=== PATIENT | female | born 1970 | race Caucasian/White ===

== ENCOUNTER 2017-12-27 03:01 | Emergency (ER) | payer BC, OTHER ==
--- NOTE | 2017-12-27 04:23 | PDOC ---
History of Present Illness - General Stated Complaint: HIGH BP Time Seen by Provider: 12/27/17 04:13 History Source: Patient Exam Limitations: No Limitations - History of Present Illness Initial Comments: This is a 47 YOF with h/o asthma (on symbicort), bipolar disorder (on lithium, geodon, ziprazidone, and benztropine), and sciatica who presents c/o high blood pressure (180s systolic measured at home) and bitemporal headache for about the past 24 hours. She explains that for the past two weeks she has had mild cough, SOB, and wheezing. Her headache was present when she awakened from sleep yesterday morning (12/26) and was always present throughout the day, up to 04/20. She has had headaches like this one before. She was seen at Urgent Care yesterday after having presented for SOB, cough, and sciatica exacerbation and was clinically diagnosed with bronchitis (states no x-ray), and given prescriptions for two antibiotics and prednisone. She has had bad reactions to prednisone in the past and thus she took only half the prescribed dose this evening after 4 pm. She shortly thereafter developed shakiness/tremors and generalized malaise. She additionally took her normal antipsychotic medication regimen about 4 hours late this evening, which she rarely ever does. 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 Past History - Past Medical History Allergies/Adverse Reactions: Allergies Allergy/AdvReac Type Severity Reaction Status Date / Time aspirin Allergy Verified 12/27/17 04:48 Penicillins Allergy Verified 12/27/17 04:48 Home Medications: Ambulatory Orders Levofloxacin 750 mg PO DAILY #2 tablet 12/27/17 Review of Systems - Review of Systems Able to Perform ROS?: Yes Constitutional: Yes: Malaise. No: Chills, Fever, Unexplained wgt Loss HEENTM: No: Nose Congestion, Throat Pain Respiratory: Yes: Cough, Shortness of Breath Cardiac (ROS): No: Chest Pain, Palpitations ABD/GI: No: Constipated, Diarrhea, Nausea, Vomiting : No: Burning, Dysuria Musculoskeletal: Yes: Back Pain. No: Neck Pain Integumentary: No: Bruising, Rash Neurological: Yes: Headache, Tremors. No: Numbness, Tingling, Weakness, Dizziness Endocrine: No: Unexplained Weight Gain, Unexplained Weight Loss *Physical Exam - Physical Exam General Appearance: Yes: Nourished, Appropriately Dressed, Obese, Other ( appears slightly anxious but appropriately, answers questions appropriately, nontoxic and well-appearing). No: Apparent Distress HEENT: positive: EOMI, SOHAM, Normal Voice, Hearing Grossly Normal. negative: Scleral Icterus (R), Scleral Icterus (L), Muffled/Hoarse voice, Pharyngeal Erythema, Nasal Congestion Neck: positive: Trachea midline, Supple. negative: Tender, Rigid, Lymphadenopathy (R), Lymphadenopathy (L) Respiratory/Chest: positive: Wheezing. negative: Respiratory Distress, Labored Respiration, Rapid RR, Decreased Breath Sounds, Crackles, Rhonchi, Stridor Cardiovascular: positive: Regular Rhythm, Regular Rate. negative: Edema, Murmur Gastrointestinal/Abdominal: positive: Normal Bowel Sounds, Soft. negative: Tender, Organomegaly, Pulsatile Mass, Guarding Musculoskeletal: positive: Normal Inspection. negative: Decreased Range of Motion, Vertebral Tenderness Extremity: positive: Normal Capillary Refill, Normal Inspection, Normal Range of Motion. negative: Tender, Cyanosis Integumentary: positive: Normal Color, Dry, Warm. negative: Erythema, Rash, Bruising Neurologic: positive: customer service sales consultant II-XII NML intact (grossly), Fully Oriented, Alert, Normal Mood/Affect, Normal Response, Motor Strength 5/5, Other (normal gait). negative: EOM Palsy, Facial Droop, Confused, Disoriented, Depressed Affect ED Treatment Course - LABORATORY CBC & Chemistry Diagram: 12/27/17 04:29 12/27/17 04:29 Medical Decision Making - Medical Decision Making 47 YOF with h/o asthma (on symbicort), bipolar disorder (on lithium, geodon, ziprazidone, and benztropine), and sciatica. Reports distant h/o HTN and was previously medicated but states she changed her diet and has not needed meds lately. Presents c/o high BP, headache, SOB, cough. On exam VS wnl, she appears slightly anxious, bilateral expiratory wheezes, no cough, normal neuro exam. She does not appear to be in any distress though she does state her headache persists. Ordered is CBCD CMP Mg Cardiac panel EKG CXR UA Cx DuoNeb x2. 12/27/17 05:32 UA with many bacteria; Levaquin 750 ordered. E-Rx sent to her pharmacy for Levaquin. Also ordered is head CT for persistent headache. Tylenol ordered for headache. 12/27/17 06:49 Patient's BONNER has essentially resolved. Her repeat neuro exam is benign. We have shared decision making and decide not to do head CT. Repeat vitals are not concerning. She is counseled to speak with her PCP about long-term HTN medication. She is also counseled at length about return precautions. She will follow up early this week with PCP. *DC/Admit/Observation/Transfer Diagnosis at time of Disposition: Dizziness and giddiness Headache Qualifiers: Headache type: unspecified Headache chronicity pattern: acute headache Intractability: not intractable Qualified Code(s): R51 - Headache UTI (urinary tract infection) Qualifiers: Urinary tract infection type: site unspecified Hematuria presence: without hematuria Qualified Code(s): N39.0 - Urinary tract infection, site not specified - Discharge Dispostion Disposition: HOME Condition at time of disposition: Stable Admit: No - Prescriptions Prescriptions: Levofloxacin 750 mg PO DAILY #2 tablet - Referrals - Patient Instructions Additional Instructions: You were seen in the ER for high blood pressure, headache, and shakiness. We did lab tests and found a urinary tract infection, so we gave you a dose of an antibiotic called Levaquin and sent a prescription to your for the rest of this short course of antibiotics. We also gave you a dose of Tylenol for your headache. We got a chest x-ray which did not look at all concerning. We considered getting a head CT, but your pain improved enough while you were in the department that we do not believe you need a head CT. Please follow up with your regular doctor on Thursday. Continue taking the medications you got at Urgent Care (it is okay to be on both of these antibiotics at the same time). Please return to the ER for any new or worsening symptoms like worsening headache, vision changes, losing consciousness, new numbness/tingling/weakness, or any other symptoms. - Post Discharge Activity
[2017-12-27 04:35] LABS: BASO % 0.8 % (0-2.0); HEMATOCRIT 38.1 % (32.4-45.2); HEMOGLOBIN 12.9 GM/dL (10.7-15.3); LYMPH % 25.8 % (8-40); MCHC 33.8 g/dl (32.0-36.0); MEAN CELL VOLUME 85.8 fl (80-96); MEAN PLT VOLUME 8.1 fl (7.5-11.1); MONO % 6.9 % (3.8-10.2); NEUT % 65.5 % (42.8-82.8); PLATELET COUNT 338 K/MM3 (134-434); RBC 4.44 M/mm3 (3.60-5.2); RDW 15.2 % (11.6-15.6); WHITE BLOOD COUNT 9.9 K/mm3 (4.0-10.0)
[2017-12-27 04:39] LABS: URINE APPEARANCE CLEAR; URINE BILIRUBIN NEGATIVE (NEGATIVE); URINE COLOR STRAW; URINE GLUCOSE (UA) NEGATIVE (NEGATIVE); URINE KETONE NEGATIVE (NEGATIVE); URINE LEUK ESTERASE NEGATIVE (NEGATIVE); URINE NITRITE NEGATIVE (NEGATIVE); URINE PROTEIN NEGATIVE (NEGATIVE); URINE UROBILINOGEN NEGATIVE mg/dL (0.2-1.0)
[2017-12-27 04:42] LABS: EPI CELLS RARE /HPF (FEW); URINE BACTERIA MANY /hpf (NONE SEEN)
--- NOTE | 2017-12-27 04:42 | PDOC ---
Attending Attestation - Resident Resident Name: AlissonLisa - ED Attending Attestation I have performed the following: I have examined & evaluated the patient, The case was reviewed & discussed with the resident, I agree w/resident's findings & plan - HPI HPI: 12/27/17 05:27 Pt comes with headache. She had high BP at home. She has a hx of HTN, but with improved diet she managed to get off HTN meds. - Physicial Exam PE: 12/27/17 05:29 Agree with resident exam - Medical Decision Making 12/27/17 05:29 Pt will have labs, CT head and UA sent to evaluate her condition. Labs returning normal. CT head pending. 12/27/17 19:[address] head was canceled as she feels vastly imrpoved with initial treatment in the ER and labs are returning to normal, and as a result she is refusing the CT and requesting that we send her home. Pt is stable for discharge at this time. She has a normal neuro exam. <Kiana Ridley - Last Filed: 12/27/17 19:32> Heart Score/ECG Review - ECG Intrepretation Comment:: 12/27/17 04:42 Completed @4:36:05 Normal sinus rhythm Normal ECG Vent. rate 76 bpm ME interval 148ms QRS duration 108 ms <Tremayne Guidry - Last Filed: 12/27/17 04:42>
[2017-12-27 04:47] VITALS: BP 144/94; PULSE 82; TEMP 98.2
[2017-12-27 05:00] LABS: ALBUMIN 3.8 g/dl (3.4-5.0); ANION GAP 12 (8-16); BILIRUBIN,TOTAL 0.2 mg/dL (0.2-1.0); BLOOD UREA NITROGEN 8 mg/dL (7-18); CALCIUM 8.9 mg/dL (8.5-10.1); CHLORIDE 108 mmol/L (98-107); CO2 21 mmol/L (21-32); CREATININE 0.6 mg/dL (0.55-1.02); GLUCOSE,RANDOM 93 mg/dL (74-106); MAGNESIUM 2.3 mg/dL (1.8-2.4); SGOT/AST 20 U/L (15-37); SGPT/ALT 20 U/L (12-78); SODIUM 141 mmol/L (136-145); TOT PROT 7.3 g/dl (6.4-8.2)
[2017-12-27 05:03] LABS: ALK PHOS 113 U/L (45-117)
[2017-12-27] MEDS ORDERED: ALBUTEROL SO4 2.5/IPRATROPIUM 0.5 INH SOL 3 ML VIAL.NEB. NEB ONE (05:18)
[2017-12-27] MEDS ORDERED: ACETAMINOPHEN 500 MG TABLET (FP) PO ONE (06:25)
[2017-12-27] MEDS ORDERED: ACETAMINOPHEN 325 MG TABLET (FP) ONE (06:35)
--- NOTE | 2017-12-27 23:57 | EKG ---
Test Reason : Blood Pressure : / mmHG Vent. Rate : 076 BPM Atrial Rate : 076 BPM P-R Int : 148 ms QRS Dur : 108 ms QT Int : 422 ms P-R-T Axes : 042 021 030 degrees QTc Int : 474 ms POOR DATA QUALITY, INTERPRETATION MAY BE ADVERSELY AFFECTED NORMAL SINUS RHYTHM NORMAL ECG NO PREVIOUS ECGS AVAILABLE Confirmed by CARLOS CLARK MD ([id number]) on 12/27/2017 11:56:43 PM Referred By: Confirmed By:CARLOS CLARK MD
== END 2017-12-27 07:06 | disposition home or self-care (01) ==
LOC: JER 03:01
PROC: 3E0F7GC Introduction of Other Therapeutic Substance into Respiratory Tract, Via Natural or Artificial Opening (ICD-10-PCS; principal; 2017-12-27)
DX: N39.0 Urinary tract infection, site not specified (principal); R51 Headache
CPT/HCPCS: 36415; 71045-TC-FY; 80053; 81003; 81015; 82550; 83735; 84484; 85025; 87086; 93005; 93010; 94640; 99281-25; 99282-25; J7620

== ENCOUNTER 2019-04-29 14:34 | Observation (INO) | payer BC, OTHER ==
--- NOTE | 2019-04-29 14:41 | PDOC ---
Rapid Medical Evaluation Time Seen by Provider: 04/29/19 14:39 Medical Evaluation: Allergies Allergy/AdvReac Type Severity Reaction Status Date / Time aspirin Allergy Verified 12/27/17 22:59 Penicillins Allergy Verified 12/27/17 22:59 04/29/19 14:40 I have performed a brief in-person evaluation of this patient. The patient presents with a chief complaint of: AMS (memory loss and hypersomnia ). H/o bipolar on meds, including lithium, HTN, asthma Pertinent physical exam findings:Stable and A&O x 3 I have ordered the following:none The patient will proceed to the ED for further evaluation. Discharge Disposition - Diagnosis Altered mental status Qualifiers: Altered mental status type: unspecified Qualified Code(s): R41.82 - Altered mental status, unspecified - Referrals - Patient Instructions - Post Discharge Activity
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
--- NOTE | 2019-04-29 18:03 | PDOC ---
*Physical Exam - Vital Signs Last Vital Signs Temp Pulse Resp BP Pulse Ox 97.9 F 64 18 118/75 96 04/29/19 14:38 04/29/19 14:38 04/29/19 14:38 04/29/19 14:38 04/29/19 14:38 Heart Score/ECG Review #1 ECG reviewed & interpreted by me at: 17:55 04/29/19 18:03 NSR 56, LVH, no std/casandra, TWI, normal axis, normal intervals, QTC 459 msec Medical Decision Making - Medical Decision Making 04/29/19 18:02 Pt seen by the Advanced Practice Provider under my direct supervision Ancillary studies reviewed I agree with plan as outlined by the Advanced Practice Provider TATI Carmona *DC/Admit/Observation/Transfer Diagnosis at time of Disposition: Altered mental status Qualifiers: Altered mental status type: unspecified Qualified Code(s): R41.82 - Altered mental status, unspecified - Referrals Referrals: Felipe Judge MD [Primary Care Provider] - - Patient Instructions - Post Discharge Activity
[2019-04-29 18:39] LABS: BASO % 0.9 % (0-2.0); EOS % 5.8 % (0-4.5); HEMATOCRIT 36.5 % (32.4-45.2); HEMOGLOBIN 12.4 GM/dL (10.7-15.3); LYMPH % 32.6 % (8-40); MCH 29.7 pg (25.7-33.7); MCHC 33.9 g/dl (32.0-36.0); MEAN CELL VOLUME 87.7 fl (80-96); MEAN PLT VOLUME 8.3 fl (7.5-11.1); MONO % 6.3 % (3.8-10.2); NEUT % 54.4 % (42.8-82.8); PLATELET COUNT 316 K/MM3 (134-434); RBC 4.17 M/mm3 (3.60-5.2); WHITE BLOOD COUNT 9.1 K/mm3 (4.0-10.0)
[2019-04-29 19:01] LABS: ALBUMIN 3.7 g/dl (3.4-5.0); BILIRUBIN,TOTAL 0.2 mg/dL (0.2-1); BLOOD UREA NITROGEN 10.3 mg/dL (7-18); CALCIUM 8.9 mg/dL (8.5-10.1); CREATININE 0.9 mg/dL (0.55-1.3)
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
[2019-04-30] MEDS ORDERED: BENZTROPINE MESYLATE 2 MG TABLET PO ONE (01:49)
[2019-04-30 04:48] VITALS: BMI 33.3
[2019-04-30 08:15] LABS: COCAINE, UR NEGATIVE ng/ml (CUTOFF=300); METHADONE, UR NEGATIVE ng/ml (CUTOFF=300); OPIATES, URI NEGATIVE ng/ml (CUTOFF=300); PHENCYCLIDINE,URINE NEGATIVE ng/ml (CUTOFF=25); URINE AMPHETAMINES NEGATIVE ng/ml (CUTOFF=500); URINE BARBITURATES NEGATIVE ng/ml (CUTOFF=200); URINE BENZODIAZEPINES NEGATIVE ng/ml (CUTOFF=200)
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
[2019-04-30 08:35] LABS: HEMATOCRIT 36.2 % (32.4-45.2); HEMOGLOBIN 12.2 GM/dL (10.7-15.3); MCH 29.5 pg (25.7-33.7); MCHC 33.7 g/dl (32.0-36.0); MEAN CELL VOLUME 87.5 fl (80-96); MEAN PLT VOLUME 8.4 fl (7.5-11.1); PLATELET COUNT 317 K/MM3 (134-434); RBC 4.14 M/mm3 (3.60-5.2); RDW 14.1 % (11.6-15.6); WHITE BLOOD COUNT 9.2 K/mm3 (4.0-10.0)
[2019-04-30 08:52] LABS: ALBUMIN 3.6 g/dl (3.4-5.0); BILIRUBIN,TOTAL 0.4 mg/dL (0.2-1); BLOOD UREA NITROGEN 10.2 mg/dL (7-18); CALCIUM 8.7 mg/dL (8.5-10.1); CREATININE 0.8 mg/dL (0.55-1.3); MAGNESIUM 2.4 mg/dL (1.8-2.4); TOT PROT 6.9 g/dl (6.4-8.2)
[2019-04-30] MEDS ORDERED: PT OWN MED DRAWER 7, Y5N ONE ×2 (09:16→21:42)
[2019-04-30 09:34] LABS: EPI CELLS 7.8 /HPF (0-5/HPF); HYALINE CASTS 0 /lpf (0-8); URINE APPEARANCE CLEAR; URINE BILIRUBIN NEGATIVE (NEGATIVE); URINE COLOR YELLOW; URINE GLUCOSE (UA) NEGATIVE (NEGATIVE); URINE KETONE NEGATIVE (NEGATIVE); URINE LEUK ESTERASE 3+ (NEGATIVE); URINE NITRITE NEGATIVE (NEGATIVE); URINE PROTEIN NEGATIVE (NEGATIVE); URINE RBC 1 /hpf (0-4); URINE UROBILINOGEN 0.2 mg/dL (0.2-1.0); URINE WBC 18 /hpf (0-5)
[2019-04-30] MEDS: ZIPRASIDONE 40 MG CAPSULE (FP) PO SCH ×2 (09:43→21:47)
[2019-04-30] MEDS: LITHIUM CARBONATE 150 MG CAPSULE PO SCH ×2 (09:43→21:47)
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
[2019-04-30] MEDS ORDERED: CITALOPRAM HYDROBROMIDE 20 MG TABLET (FP) PO SCH (22:00)
[2019-04-30] MEDS ORDERED: BENZTROPINE MESYLATE 2 MG TABLET PO SCH (22:00)
--- NOTE | 2019-05-01 00:08 | EKG ---
Test Reason : Blood Pressure : / mmHG Vent. Rate : 056 BPM Atrial Rate : 056 BPM P-R Int : 168 ms QRS Dur : 094 ms QT Int : 476 ms P-R-T Axes : 023 007 020 degrees QTc Int : 459 ms SINUS BRADYCARDIA MINIMAL VOLTAGE CRITERIA FOR LVH, MAY BE NORMAL VARIANT BORDERLINE ECG WHEN COMPARED WITH ECG OF 27-DEC-2017 04:36, NO SIGNIFICANT CHANGE WAS FOUND Confirmed by AMBER MENENDEZ, CARLOS ([id number]) on 05/01/2019 12:07:53 AM Referred By: Confirmed By:CARLOS CLARK MD
--- NOTE | 2019-05-01 09:05 | PN ---
Progress Note (short form) - Note Progress Note: is currently hospitalized at [facility] since April. Not expected to return to work until at least April. Sincerely, Sandhya Mcneill MD
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
[2019-05-01] MEDS ORDERED: PT OWN MED DRAWER 7, Y5N ONE ×2 (09:37→11:30)
[2019-05-01] MEDS: LITHIUM CARBONATE 150 MG CAPSULE PO SCH (09:41)
[2019-05-01] MEDS: ZIPRASIDONE 40 MG CAPSULE (FP) PO SCH (09:42)
[2019-05-01 12:30] VITALS: BP 148/90
--- NOTE | 2019-05-01 13:31 | CON.PSY ---
Psychiatry Consult Chief Complaint: 49 mica old female with a long history of BiPolar Diusorder being treated by for many years. Cane to [facility] reporting that she has been confused and cant remenber anything. She However has been visitiongt with people bthat she has not seen [facility] and able to rememberr them and engage in conversation. seems very coherent. Symptoms: reports: Memory Impairment - Previous Psychiatric Treatment Outpatient: Less than 6 mos ago Inpatient: One prior admission - Previous Substance Abuse Treatment Outpatient: None Inpatient: None - Reason for Previous Treatment Reason for Previous Treatment: Biploar Illness - Current Medications Current Medications: Active Medications [place] Carbonate (Eskalith -) 450 mg PO BID TIAOG Last Admin: 05/01/19 09:41 Dose: 450 mg - Allergies Allergies: Allergies Allergy/AdvReac Type Severity Reaction Status Date / Time aspirin Allergy Verified 12/27/17 22:59 Penicillins Allergy Verified 12/27/17 22:59 - Current Living Status Usual Living Arrangement: Alone - Current Mental Status Evaluation Appearance: Well Groomed Attitude: Cooperative - Affect Affect: Full Range Appropriateness: Appropriate to Content - Mood Mood: Euthymic - Speech/Language Expressive: Coherent - Psychomotor Activity Psychomotor Activity: Normal - Thought Process Thought Process: Intact - Thought Content Hallucinations: Absent Delusions: Absent - Self Perception Self Perception: No Impairment - Cognition Attention: Alert Orientation: Time Memory, Immediate Recall: Intact Memory, Short Term: 3/3 Memory, Remote with Promptin/3 - Concentration Serial Sevens Intact: No Simple Calculations Intact: Yes - Abstraction Proverb Interpretation: Intact Judgement: Intact - Insight Insight: Intact - Impulse Control Impulse Control: Good Control - Suicidal Ideation Suicidal Ideation: No - Homicidal Ideation Homicidal Ideation: No Assessment/Plan 1) will d/c Celexa. cogentin and reduce Geodo dose. 2) No major cognitive defecits seen by me but would recemmend a Neuro Consult prior to Discharge. 3) will follow with Dr. Guillen. 4) Serum [place] levels.
[2019-05-01 14:25] VITALS: PULSE 77; TEMP 97.5
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
[2019-05-01] MEDS ORDERED: ZIPRASIDONE 20 MG CAPSULE PO SCH (22:00)
== END 2019-05-01 18:08 | disposition home or self-care (01) ==
LOC: JER 14:34 → JERBED 22:52 → J6S 04-30 03:26
PROVIDERS: ADMIT Internal Medicine; ATTEND Internal Medicine
DX: R41.82 Altered mental status, unspecified (principal); I10 Essential (primary) hypertension; F31.9 Bipolar disorder, unspecified; J45.909 Unspecified asthma, uncomplicated
CPT/HCPCS: 36415; 70450-TC; 80053; 80178; 80307; 81003; 82140; 82607; 82746; 83735; 84443; 84703; 85025; 85027; 93005; 93010; 99281-25; G0378

== ENCOUNTER 2020-04-24 06:47 | Day surgery (SDC) | payer BC ==
[2020-04-23 12:33] VITALS: BMI 37.0
[2020-04-24] MEDS ORDERED: oxyCODONE HCL 5 MG TABLET PO PRN ×2 (07:40→13:04)
[2020-04-24] MEDS ORDERED: ONDANSETRON 4 MG/2 ML VIAL IVPUSH PRN ×2 (07:40→13:04)
[2020-04-24] MEDS ORDERED: LACTATED RINGERS SOLUTION 1,000 ML IV SCH (07:45)
[2020-04-24] MEDS ORDERED: SUCCINYLCHOLINE CHLORIDE 200 MG/10 ML SYRINGE ONE (07:50)
[2020-04-24] MEDS ORDERED: PROPOFOL 20 ML ONE ×2 (07:50)
[2020-04-24] MEDS ORDERED: MIDAZOLAM HCL 2 MG/2 ML SINGLE DOSE VIAL ONE (07:50)
[2020-04-24] MEDS ORDERED: EPHEDRINE SULFATE/0.9% NACL/PF 50 MG/10 ML SYRINGE NR ONE (07:50)
[2020-04-24] MEDS ORDERED: LIDOCAINE HCL/PF 2% SDV 5ML VIAL ONE (07:50)
[2020-04-24] MEDS ORDERED: DEXAMETHASONE SOD PHOSPHATE 4 MG/1 ML VIAL ONE (07:50)
--- NOTE | 2020-04-24 09:00 | HP ---
History & Physical Update - Physical Physical: No Change - Assessment Assessment: No Change - Plan Plan: No Change (H&P reviwed , no changes for hysteroscopy D&C ,polypectomy)
[2020-04-24] MEDS ORDERED: ONDANSETRON 4 MG/2 ML VIAL ONE (10:15)
--- NOTE | 2020-04-24 13:08 | OP ---
Operative Note - Note: Operative Date: 04/24/20 Pre-Operative Diagnosis: menorrhagia, EM polyp, submucos myoma Operation: hysteroscopy, resection of submucos myoma, EM polypectomy, D&C Findings: ant2 cm submucos myoma fundal area, EM polyp, irregular EM Post-Operative Diagnosis: Same as Pre-op Surgeon: Patricio Chris Anesthesia: General Specimens Removed: submucos myoma, EM polyp, EMC Estimated Blood Loss (mls): 50 Instrument used (Debridements only): symphion
[2020-04-24 13:15] VITALS: BP 134/79; PULSE 62; TEMP 98
[2020-04-24] MEDS ORDERED: ELECTROLYTE-148 SOLN 1,000 ML IV SCH (13:15)
--- NOTE | 2020-04-24 20:07 | OP ---
DATE OF OPERATION: 04/24/2020 PREOPERATIVE DIAGNOSIS: Menorrhagia, submucosal myoma, endometrial polyp. POSTOPERATIVE DIAGNOSIS: Menorrhagia, submucosal myoma, endometrial polyp. PROCEDURE: Hysteroscopy dilation and curettage, resection of submucosal myoma, and polypectomy. SURGEON: Patricio Chris MD. ANESTHESIOLOGIST: Jamar Marquez MD. ESTIMATED BLOOD LOSS: 50 mL. OPERATION: Patient was taken to operating room, had adequate general anesthesia. Abdomen and perineum were prepped and draped. Vagina was prepped with Betadine, and then examination under anesthesia revealed external genitalia to be normal. Vagina was normal. Cervix was clean, no gross lesion. Uterus was prominent. Adnexa, no masses were palpable. Then, with a weighted speculum in the vagina, anterior lip of the cervix was grasped with a single-toothed tenaculum. Uterine cavity was sounded to 10 cm. Then cervix with slightly dilated and with Hegar dilator. Then, Symphion hysteroscope was introduced to the uterine cavity easily, and then visualization of the cavity shows the endocervical area to be clean. Uterus cavity was enlarged, and there was 2-cm submucosal myoma on the anterior fundal area, and there were 2 small polyps on the lateral left wall. Both corneal regions were identified, and tubal ostium was visualized. Then with a Symphion resectoscope, a submucous myoma first was resected and suctioned, and then the polyps were also resected with the Symphion resectoscope. Then the scope was withdrawn, and then uterine cavity was curetted. Patient tolerated procedure well, left the OR in good condition. PATRICIO CHRIS M.D. [id number]
--- NOTE | 2020-04-25 17:19 | PATH ---
Surgical Pathology Report Patient Name: EVAN CADENA [facility]. Rec. #: [id number] /Age/Gender: 1970 (Age: 50) / F Account: [id number] Location: [facility] SURGICAL Taken: 04/24/2020 Received: 04/24/2020 Reported: 04/25/2020 Physicians: Patricio Chris M.D. Specimen(s) Received A: ENDOMETRIAL POLYP AND UTERE MYOMA B: ENDOMETRIAL CURETTINGS Clinical History Endometrial polyps Final Diagnosis A. ENDOMETRIAL POLYP AND UTERINE MYOMA, BIOPSY: FRAGMENTS OF ENDOMETRIAL POLYP. ONE PORTION OF SMOOTH MUSCLE BUNDLE, CONSISTENT WITH SUBMUCOSAL LEIOMYOMA IN THE PROPER CLINICAL SETTING. SEPARATE PROLIFERATIVE ENDOMETRIUM WITH FOCAL PAPILLARY SYNCYTIAL CHANGE. SEPARATE ENDOCERVICAL TISSUE WITH SQUAMOUS METAPLASIA. B. ENDOMETRIAL CURETTINGS: FRAGMENTS OF ENDOMETRIAL POLYP. SMOOTH MUSCLE BUNDLES, CONSISTENT WITH SUBMUCOSAL LEIOMYOMA IN THE PROPER CLINICAL SETTING. SEPARATE PROLIFERATIVE ENDOMETRIUM WITH FOCAL PAPILLARY SYNCYTIAL CHANGE. Electronically Signed Eileen Parnell M.D. Gross Description A. Received in formalin labeled "endometrial polyp and uterine myoma," is a 3.5 x 2.0 x 0.3 cm aggregate of benjamin-brown soft tissue fragments. The formalin is filtered and the specimen is entirely submitted in 2 cassettes. B. Received in formalin labeled "endometrial curetting," is a 1.6 x 1.4 x 0.3 cm aggregate of benjamin soft tissue fragments. The formalin is filtered and the specimen is entirely submitted in one cassette. /04/24/2020 saudi/04/24/2020
== END 2020-04-24 12:45 | disposition home or self-care (01) ==
LOC: JASU-SURG 06:47
PROVIDERS: ATTEND Obstetrics & Gynecology
PROC: 0UDB7ZX Extraction of Endometrium, Via Natural or Artificial Opening, Diagnostic (ICD-10-PCS; 2020-04-24)
PROC: 0UJD8ZZ Inspection of Uterus and Cervix, Via Natural or Artificial Opening Endoscopic (ICD-10-PCS; 2020-04-24)
PROC: 0UB98ZZ Excision of Uterus, Via Natural or Artificial Opening Endoscopic (ICD-10-PCS; principal; 2020-04-24 09:00)
PROC: 0UB97ZX Excision of Uterus, Via Natural or Artificial Opening, Diagnostic (ICD-10-PCS; 2020-04-24 09:00)
DX: N92.0 Excessive and frequent menstruation with regular cycle (principal); D25.0 Submucous leiomyoma of uterus; N84.0 Polyp of corpus uteri
CPT/HCPCS: 84703; 88305-TC; 94760

== ENCOUNTER 2020-06-18 14:12 | Emergency (ER) | payer BC ==
--- NOTE | 2020-06-18 14:19 | PDOC ---
Rapid Medical Evaluation Time Seen by Provider: 06/18/20 14:15 Medical Evaluation: Allergies Allergy/AdvReac Type Severity Reaction Status Date / Time aspirin Allergy Verified 04/24/20 07:31 Penicillins Allergy Verified 04/24/20 07:31 06/18/20 14:16 I have performed a brief in-person evaluation of this patient. CC: abdominal pain, headache, dizziness, "my legs feel like jelly." Symptoms started after abrupt discontinuation of lithium under recommendation of Dr. Enriqueta Fitch. PE: No focal findings Orders: labs, urine Patient will proceed to ED for further evaluation. Discharge Disposition - Diagnosis Headache - Referrals - Patient Instructions - Post Discharge Activity
[2020-06-18] MEDS ORDERED: SODIUM CHLORIDE 1,000 ML IV STA (14:20)
[2020-06-18 14:25] VITALS: BMI 32.5
--- NOTE | 2020-06-18 14:29 | PDOC ---
History of Present Illness - General Chief Complaint: Weakness Stated Complaint: HEADACHE/WEAKNESS Time Seen by Provider: 06/18/20 14:15 History Source: Patient Exam Limitations: No Limitations - History of Present Illness Initial Comments: 06/18/20 14:27 HPI: This is a 50 y/o female with a PMH of HTN, bipolar, and asthma presenting to the ED due to progressive weakness, abdominal pain, and nausea which she attributes to lithium withdrawal. She began having abdominal pain a few weeks ago and thought it may be due to lithium toxicity. Her psychiatrist told her to hold the lithium and go have labs drawn. Per her psychiatrist her lithium level was sub therapeutic at .3. The patient wanted to stop taking the lithium because she felt well, and the psychiatrist oked it. The patient stopped Thursday, but developed worsening abdominal pain, diarrhea, nausea, and weakness. She also admits to decreased appetite and insomnia. She reports that she hasn't slept the past two evenings. She took her normal lithium dose this morning to see if it would make her feel better. She denies chest pain, SOB. ADULT ROS Constitutional - Pt denies Fever, Chills Admits to weakness HEENT: denies vision changes, sore throat Respiratory: Denies cough, sob, hemoptysis Cardiac: denies chest pain, palpitations, light headedness Abd/GI: Admits to abdominal pain, nausea, and diarrhea. Denies vomiting : denies dysuria, frequency, discharge Musculskelatal - denies back pain, joint swelling skin - denies bruising, erythema, rash neurological: Admits to headache, Denies numbness, focal weakness, tingling, ataxia, weakness hematologic: denies anemia, easy bruising, easy bleeding PMH: HTN, bipolar, asthma PSx: Social Hx: Denied etoh, tobacco, or drug use Meds: [place], geodon, metoprolol Allergies: Aspirin, penicillin ADULT Physical ExaM GENERAL: The patient is awake, alert, and fully oriented, Nontoxic - in no acute distress. HEAD: Normocephalic, atraumatic. EYES: extraocular movements intact, conjunctiva clear. ENT: Normal voice, Moist mucous membranes. NECK: Normal range of motion, supple without lymphadenopathy, JVD, or masses. LUNGS: Breath sounds equal, clear to auscultation bilaterally. No wheezes, no crackles, no rales. HEART: Regular rate and rhythm, normal S1 and S2 without murmur, rub or gallop. ABDOMEN: Soft, nontender, normoactive bowel sounds. No guarding, no rebound. No masses. NEUROLOGICAL: No facial asymmetry, Normal speech, normal gait. PSYCH: Normal mood, normal affect. No suicidal or homicidal ideation. MDM: This is a 50 y/o female with a PMH of HTN, bipolar, and asthma presenting to the ED due to progressive weakness, abdominal pain, and nausea which she attributes to lithium withdrawal. - [place] withdrawal vs depressive episode vs hypothyroid - CBC, CMP, TSH, Cardiac panel, lithium level - Zofran for nausea, fluids, acetaminophen for headache 06/18/20 15:34 Spoke with her psychiatrist, Dr. Quezada who reports that she knew that the patient stopped the [place] on Thursday and suggested this may be lithium withdrawal. OK to d/c if no other concerns in ED and follow-up as an outpatient in the next few days. 06/18/20 15:47 -Mildly elevated liver enzymes. - AST 64 and ALT 109 -POCUS with no evidence of gallbladder pathology - Patient stable to d/c and follow-up with psychiatrist tomorrow. Past History - Medical History Allergies/Adverse Reactions: Allergies Allergy/AdvReac Type Severity Reaction Status Date / Time aspirin Allergy Verified 06/18/20 14:17 Penicillins Allergy Verified 06/18/20 14:17 Home Medications: Ambulatory Orders Escitalopram Oxalate [Lexapro -] 20 mg PO HS 04/23/20 Hydrochlorothiazide 25 mg PO DAILY 04/23/20 Lamotrigine [Lamotrigine ER] 50 mg PO BID 04/23/20 Ziprasidone [Geodon -] 80 mg PO DAILY 04/23/20 Acetaminophen [Tylenol] 650 mg PO TID PRN #30 tablet 04/24/20 Albuterol Sulfate [Albuterol Sulfate Hfa] 18 gm IH PRN PRN 04/24/20 Metoprolol Succinate [Toprol Xl] 200 mg PO DAILY 04/24/20 Anemia: No Asthma: Yes Cancer: No Cardiac Disorders: No CVA: No COPD: No CHF: No Dementia: No Diabetes: No GI Disorders: No Disorders: No HTN: Yes Hypercholesterolemia: No Liver Disease: No Psychiatric Problems: Yes (bipolar) Seizures: No Thyroid Disease: No - Reproductive History Is Patient Now?: No - Immunization History Immunization Up to Date: Yes - Psycho-Social/Smoking History Smoking History: Unknown if ever smoked Have you smoked in the past 12 months: No - Substance Abuse Hx (Audit-C & DAST Scrn) How often the patient has a drink containing alcohol: Never Score: In Men: 4 or > Positive; In Women: 3 or > Positive: 0 Screen Result (Pos requires Nsg. Audit-10AR): Negative In the last yr the pt used illegal drug/Rx for NonMed reason: No Score: Yes response is considered Positive: 0 Screen Result (Positive result requires Nsg. DAST-10): Negative *Physical Exam - Vital Signs Last Vital Signs Temp Pulse Resp BP Pulse Ox 57 L 20 157/87 99 06/18/20 14:23 06/18/20 14:23 06/18/20 14:23 06/18/20 14:23 ED Treatment Course - LABORATORY CBC & Chemistry Diagram: 06/18/20 14:45 06/18/20 14:45 Discharge - Discharge Information Problems reviewed: Yes Clinical Impression/Diagnosis: Shaking Abdominal pain Qualifiers: Abdominal location: generalized Qualified Code(s): R10.84 - Generalized abdominal pain Condition: Stable Disposition: HOME - Admission No - Follow up/Referral Referrals: Emerson Cardona MD [Primary Care Provider] - - Patient Discharge Instructions Patient Printed Discharge Instructions: DI for Abdominal Pain-Adult Additional Instructions: You came to the ER today because of abdominal pain, weakness, and not feeling well. We did labs which came back normal except for slightly elevated liver enzymes. You can follow up with you primary care provider on an outpatient basis for this. We spoke with your psychiatrist who advised that you resume your lithium as normal and follow-up with her in the next day. Take all your medications as prescribed. Please return to the emergency department immediately should you feel worse in any way or have any of the following symptoms: increasing or different abdominal pain, persistent vomiting, fevers or shaking chills. - Post Discharge Activity
[2020-06-18 15:05] LABS: BASO % 0.8 % (0-2.0); EOS % 2.8 % (0-4.5); HEMATOCRIT 36.6 % (32.4-45.2); HEMOGLOBIN 11.9 GM/dL (10.7-15.3); LYMPH % 32.2 % (8-40); MCH 28.1 pg (25.7-33.7); MCHC 32.6 g/dl (32.0-36.0); MEAN CELL VOLUME 86.2 fl (80-96); MEAN PLT VOLUME 8.7 fl (7.5-11.1); MONO % 8.6 % (3.8-10.2); NEUT % 55.6 % (42.8-82.8); PLATELET COUNT 331 K/MM3 (134-434); RBC 4.24 M/mm3 (3.60-5.2); RDW 14.7 % (11.6-15.6); WHITE BLOOD COUNT 6.9 K/mm3 (4.0-10.0)
[2020-06-18] MEDS ORDERED: ONDANSETRON 4 MG TABLET PO ONE (15:20)
[2020-06-18] MEDS ORDERED: ACETAMINOPHEN 1000 MG/100 ML VIAL (NON FORMULARY) IVPB ONE (15:21)
[2020-06-18] MEDS ORDERED: FAMOTIDINE 20 MG TABLET PO ONE (15:33)
[2020-06-18] MEDS ORDERED: MAG HYDROX/AL HYDROX/SIMETH 30 ML UNIT-DOSE CUP PO ONE (15:33)
[2020-06-18 15:34] LABS: ALBUMIN 3.7 g/dl (3.4-5.0); ALK PHOS 99 U/L (45-117); ANION GAP 8 MMOL/L (8-16); BILIRUBIN,TOTAL 0.2 mg/dL (0.2-1); BLOOD UREA NITROGEN 9.8 mg/dL (7-18); CALCIUM 9.5 mg/dL (8.5-10.1); CHLORIDE 108 mmol/L (98-107); CO2 26 mmol/L (21-32); CREATININE 0.8 mg/dL (0.55-1.3); GLUCOSE,RANDOM 96 mg/dL (74-106); POTASSIUM 3.4 mmol/L (3.5-5.1); SGOT/AST 64 U/L (15-37); SGPT/ALT 109 U/L (13-61); SODIUM 142 mmol/L (136-145); TOT PROT 7.4 g/dl (6.4-8.2)
--- NOTE | 2020-06-18 15:47 | PDOC ---
Attending Attestation - Resident Resident Name: Luis MiguelNeha - ED Attending Attestation I have performed the following: I have examined & evaluated the patient, The case was reviewed & discussed with the resident, I agree w/resident's findings & plan, Exceptions are as noted - HPI HPI: 50 yo F history HTN, bipolar disorder, asthma presents with weakness. She states she has been having abdominal pain and nausea anytime she eats for the past few weeks, and was concerned it was associated with her lithium. She has had lithium toxicity in the past, which raised her concern. She discussed with her psychiatrist, they held the lithium and she got tested. Level was subtherapeutic. She states initially she was feeling well, but then started to have trouble sleeping. Abdominal pain and nausea never improved. Today she developed tremors in her hands and became concerned, restarted lithium. - Physicial Exam PE: GENERAL: Awake, alert, and fully oriented, in no acute distress HEAD: No signs of trauma EYES: PERRLA, EOMI, sclera anicteric, conjunctiva clear ENT: Auricles normal inspection, hearing grossly normal, nares patent, oropharynx clear without exudates. Moist mucosa NECK: Normal ROM, supple, no lymphadenopathy, JVD, or masses LUNGS: Breath sounds equal, clear to auscultation bilaterally. No wheezes, and no crackles HEART: Regular rate and rhythm, normal S1 and S2, no murmurs, rubs or gallops ABDOMEN: Soft, nontender, normoactive bowel sounds. No guarding, no rebound. No masses EXTREMITIES: Normal range of motion, no edema. No clubbing or cyanosis. No cords, erythema, or tenderness NEUROLOGICAL: Cranial nerves II through XII grossly intact. Normal speech, normal gait. Motor and sensation intact SKIN: Warm, dry, normal turgor, no rashes or lesions noted. - Medical Decision Making 06/18/20 16:09 Pt is describing some manic symptoms, likely due to lithium cessation. She will resume old dosing regimen. As she is having abdominal symptoms with eating, suspect this may be gastritis/PUD. Will recommend GI f/u. Discharge - Discharge Information Problems reviewed: Yes Clinical Impression/Diagnosis: Shaking Abdominal pain Qualifiers: Abdominal location: generalized Qualified Code(s): R10.84 - Generalized abdominal pain - Follow up/Referral Referrals: Emerson Cardona MD [Primary Care Provider] - - Patient Discharge Instructions - Post Discharge Activity
[2020-06-18] MEDS ORDERED: FAMOTIDINE 20 MG TABLET ONE (16:01)
[2020-06-18] MEDS ORDERED: ONDANSETRON *ODT* 4 MG TABLET ONE (16:02)
[2020-06-18] MEDS ORDERED: MAG HYDROX/AL HYDROX/SIMETH 30 ML UNIT-DOSE CUP ONE (16:02)
[2020-06-18] MEDS ORDERED: ACETAMINOPHEN INJECTION 100 ML IVPB ONE (16:02)
[2020-06-18 16:17] VITALS: BP 133/79; PULSE 53
[2020-06-18 16:49] LABS: URINE APPEARANCE CLOUDY; URINE BILIRUBIN NEGATIVE (NEGATIVE); URINE COLOR YELLOW; URINE GLUCOSE (UA) NEGATIVE (NEGATIVE); URINE KETONE NEGATIVE (NEGATIVE); URINE LEUK ESTERASE NEGATIVE (NEGATIVE); URINE NITRITE NEGATIVE (NEGATIVE); URINE PROTEIN NEGATIVE (NEGATIVE); URINE UROBILINOGEN 0.2 mg/dL (0.2-1.0)
[2020-06-18 16:51] LABS: HCG,QUALITATIVE URINE Negative
[2020-06-18 19:12] LABS: LIPASE 158 U/L (73-393)
--- NOTE | 2020-06-19 10:54 | EKG ---
Test Reason : Blood Pressure : / mmHG Vent. Rate : 057 BPM Atrial Rate : 057 BPM P-R Int : 166 ms QRS Dur : 094 ms QT Int : 440 ms P-R-T Axes : 017 008 033 degrees QTc Int : 428 ms SINUS BRADYCARDIA OTHERWISE NORMAL ECG WHEN COMPARED WITH ECG OF 20-APR-2020 09:42, NO SIGNIFICANT CHANGE WAS FOUND Confirmed by Celso Munroe MD ([id number]) on 06/19/2020 10:53:26 AM Referred By: Confirmed By:Celso Munroe MD
== END 2020-06-18 16:41 | disposition home or self-care (01) ==
LOC: JER 14:12
PROC: 3E0333Z Introduction of Anti-inflammatory into Peripheral Vein, Percutaneous Approach (ICD-10-PCS; principal; 2020-06-18)
PROC: 3E0337Z Introduction of Electrolytic and Water Balance Substance into Peripheral Vein, Percutaneous Approach (ICD-10-PCS; 2020-06-18)
DX: R10.84 Generalized abdominal pain (principal); R25.1 Tremor, unspecified
CPT/HCPCS: 36415; 76705-TC; 80053; 80178; 81003; 82550; 83690; 84443; 84484; 84703; 85025; 87086; 93005; 93010; 99284-25; J0131

== ENCOUNTER 2020-07-06 09:44 | Emergency (ER) | payer BC ==
[2020-07-06 09:54] VITALS: TEMP 96.7; BMI 36.8
[2020-07-06] MEDS ORDERED: LACTATED RINGERS SOLUTION 1000 ML INFUS.BAG IV ONE (10:34)
[2020-07-06 10:48] LABS: BASO % 0.6 % (0-2.0); EOS % 1.7 % (0-4.5); HEMATOCRIT 35.2 % (32.4-45.2); HEMOGLOBIN 11.7 GM/dL (10.7-15.3); LYMPH % 18.5 % (8-40); MCH 28.6 pg (25.7-33.7); MCHC 33.3 g/dl (32.0-36.0); MEAN CELL VOLUME 85.9 fl (80-96); MEAN PLT VOLUME 7.7 fl (7.5-11.1); MONO % 7.1 % (3.8-10.2); NEUT % 72.1 % (42.8-82.8); PLATELET COUNT 311 K/MM3 (134-434); RBC 4.09 M/mm3 (3.60-5.2); RDW 15.3 % (11.6-15.6); WHITE BLOOD COUNT 7.4 K/mm3 (4.0-10.0)
--- NOTE | 2020-07-06 10:55 | PDOC ---
History of Present Illness - General Chief Complaint: Tremors Stated Complaint: TREMORS Time Seen by Provider: 07/06/20 10:18 History Source: Patient - History of Present Illness Initial Comments: 07/06/20 10:48 50F w/hx bipolar on [place], schizoaffective disorder, asthma p/w one day of tremors. She reports that last night she began to have diffuse tremors through her hands, abdomen, and legs and noted flashing lights as well. She reports similar prior episode with spontaneous resolution. She was evaluated recently on 06/18 for nausea, abdominal discomfort with concern for [place] withdrawal as it h ad been stopped suddenly. She reports that she followed up with her psychiatrist (Dr. Enriqueta Fitch) and has since resumed [place] in collaboration with her psychiatrist. She denies any chest pain, sob, weakness, confusion, or pain anywhere. 07/06/20 11:08 Dr. Fitch - [phone] Past History - Medical History Allergies/Adverse Reactions: Allergies Allergy/AdvReac Type Severity Reaction Status Date / Time aspirin Allergy Verified 07/06/20 10:09 Penicillins Allergy Verified 07/06/20 10:09 Home Medications: Ambulatory Orders Escitalopram Oxalate [Lexapro -] 20 mg PO HS 04/23/20 Hydrochlorothiazide 25 mg PO DAILY 04/23/20 Lamotrigine [Lamotrigine ER] 50 mg PO BID 04/23/20 Ziprasidone [Geodon -] 80 mg PO DAILY 04/23/20 Acetaminophen [Tylenol] 650 mg PO TID PRN #30 tablet 04/24/20 Albuterol Sulfate [Albuterol Sulfate Hfa] 18 gm IH PRN PRN 04/24/20 Metoprolol Succinate [Toprol Xl] 200 mg PO DAILY 04/24/20 [place] Carbonate [Eskalith -] 300 mg PO BID 07/06/20 Anemia: No Asthma: Yes Cancer: No Cardiac Disorders: No CVA: No COPD: No CHF: No Dementia: No Diabetes: No GI Disorders: No Disorders: No HTN: Yes Hypercholesterolemia: No Liver Disease: No Psychiatric Problems: Yes (bipolar) Seizures: No Thyroid Disease: No - Reproductive History Is Patient Now?: No - Immunization History Immunization Up to Date: Yes - Psycho-Social/Smoking History Smoking History: Never smoked Have you smoked in the past 12 months: No Information on smoking cessation initiated: No - Substance Abuse Hx (Audit-C & DAST Scrn) How often the patient has a drink containing alcohol: Never Score: In Men: 4 or > Positive; In Women: 3 or > Positive: 0 Screen Result (Pos requires Nsg. Audit-10AR): Negative In the last yr the pt used illegal drug/Rx for NonMed reason: No Score: Yes response is considered Positive: 0 Screen Result (Positive result requires Nsg. DAST-10): Negative Review of Systems - Review of Systems Able to Perform ROS?: Yes Comments:: 07/06/20 10:56 GENERAL/CONSTITUTIONAL: No fever or chills. No weakness. HEAD, EYES, EARS, NOSE AND THROAT: No change in vision. No ear pain or discharge. No sore throat. CARDIOVASCULAR: No chest pain or shortness of breath RESPIRATORY: No cough, wheezing, or hemoptysis. GASTROINTESTINAL: No nausea, vomiting, diarrhea or constipation. GENITOURINARY: No dysuria, frequency, or change in urination. MUSCULOSKELETAL: No joint or muscle swelling or pain. No neck or back pain. SKIN: No rash NEUROLOGIC: Tremors. No headache, vertigo, loss of consciousness, or change in strength/sensation. ENDOCRINE: No increased thirst. No abnormal weight change HEMATOLOGIC/LYMPHATIC: No anemia, easy bleeding, or history of blood clots. ALLERGIC/IMMUNOLOGIC: No hives or skin allergy. *Physical Exam - Vital Signs Last Vital Signs Temp Pulse Resp BP Pulse Ox 96.7 F L 90 17 150/103 H 96 07/06/20 09:46 07/06/20 09:46 07/06/20 09:46 07/06/20 09:46 07/06/20 09:46 - Physical Exam 07/06/20 10:56 GENERAL: Mildly tremulous. Awake, alert, and fully oriented, in no acute distress HEAD: No signs of trauma, normocephalic, atraumatic EYES: PERRLA, EOMI, sclera anicteric, conjunctiva clear ENT: Auricles normal inspection, hearing grossly normal, nares patent, oropharynx clear without exudates. Moist mucosa NECK: Normal ROM, supple, no lymphadenopathy, JVD, or masses LUNGS: No distress, speaks full sentences, clear to auscultation bilaterally HEART: Regular rate and rhythm, normal S1 and S2, no murmurs, rubs or gallops, peripheral pulses normal and equal bilaterally. ABDOMEN: Soft, nontender, normoactive bowel sounds. No guarding, no rebound. No masses EXTREMITIES : Normal inspection, Normal range of motion, no edema. No clubbing or cyanosis NEUROLOGICAL: Cranial nerves II through XII grossly intact. Normal speech, normal gait, no focal sensorimotor deficits SKIN: Warm, Dry, normal turgor, no rashes or lesions noted ED Treatment Course - LABORATORY CBC & Chemistry Diagram: 07/06/20 10:35 07/06/20 10:35 - Medications Given in the ED: ED Medications Discontinued Medications Generic Name Dose Route Start Last Admin Trade Name Freq PRN Reason Stop Dose Admin Lactated Ringer's 1,000 ml 07/06/20 10:34 07/06/20 10:46 Lactated Ringers Solution IV 07/06/20 10:35 1,000 ml ONCE ONE Administration Medical Decision Making - Medical Decision Making 07/06/20 10:57 50F w/hx bipolar on lithium p/w diffuse tremors, without nausea, vomiting, chest pain. Ddx [place] toxicity or withdrawal, electrolyte derangement. Plan: EKG CBC CMP [place] level TSH Psychiatry consult Dispo: Pending labs, reassessment 07/06/20 11:[address] Fitch (Psychiatry). Patient can follow up with her in clinic, can be discharged if stable without SI/HI/psychotic symptoms. Discharge - Discharge Information Problems reviewed: Yes Clinical Impression/Diagnosis: Tremors of nervous system Condition: Stable Disposition: HOME - Admission No - Follow up/Referral Referrals: Felipe Judge MD [Primary Care Provider] - - Patient Discharge Instructions Patient Printed Discharge Instructions: [place] Additional Instructions: You were seen in the ER for tremors, visual changes. Your bloodwork was normal. Follow up with your psychiatrist as soon as possible, in the next 2-3 days. Return to the ER if you develop weakness, confusion, chest pain, intractable nausea and vomiting. - Post Discharge Activity
[2020-07-06 11:03] LABS: EPI CELLS >36 /uL (0-25.1); HYALINE CASTS 7 /uL (0-3.1); URINE APPEARANCE CLOUDY; URINE BACTERIA 4437 /uL (0-1359); URINE BILIRUBIN NEGATIVE (NEGATIVE); URINE COLOR YELLOW; URINE GLUCOSE (UA) NEGATIVE (NEGATIVE); URINE KETONE 1+ (NEGATIVE); URINE LEUK ESTERASE NEGATIVE (NEGATIVE); URINE NITRITE NEGATIVE (NEGATIVE); URINE PROTEIN 1+ (NEGATIVE); URINE RBC 14 /uL (0-23.9); URINE WBC 47 /uL (0-25.8)
[2020-07-06 11:18] LABS: ALBUMIN 3.6 g/dl (3.4-5.0); BILIRUBIN,TOTAL 1.4 mg/dL (0.2-1); CREATININE 0.8 mg/dL (0.55-1.3); POTASSIUM 3.6 mmol/L (3.5-5.1); TOT PROT 7.2 g/dl (6.4-8.2)
--- NOTE | 2020-07-06 12:05 | PDOC ---
Documentation entered by Heidi Waddell SCRIBE, acting as scribe for Tricia Kim MD. Tricia Kim MD: This documentation has been prepared by the mollyibBairon grullon Lincy, SCRIBE, under my direction and personally reviewed by me in its entirety. I confirm that the documentation accurately reflects all work, treatment, procedures, and medical decision making performed by me. Attending Attestation - Resident Resident Name: JodydaysicharoParas - ED Attending Attestation I have performed the following: I have examined & evaluated the patient, The case was reviewed & discussed with the resident, I agree w/resident's findings & plan, Exceptions are as noted - HPI HPI: 07/06/20 10:55 The patient is a 50-year-old female with a past medical history significant for Bipolar disorder (on [place]), schizoaffective disorder, and asthma who presents to the emergency department with 2 days of tremors to the arms, legs and abdomen. Upon further questioning, patient reports she has had these tremors intermittently for many months including during her last ED visit. The patient was seen at the ED on 06/18/2020 for nausea and abdominal pain following abrupt lithium cessation. The patient was discharged home and reports following up with her psychiatrist who resumed the lithium medication. Allergies: ASA and penicillins. - Physicial Exam PE: 07/06/20 12:02 General: well appearing HEENT: NCAT Extremities: warm and well perfused, FROM, strength preserved Neuro: +fine tremor of b/l upper extremities, speech fluent, face symmetric, gait steady, finger to nose intact and symmetric b/l, no focal deficits - Medical Decision Making 07/06/20 12:03 50 yo F p/w tremors, intermittent a for many months, no focal neurologic exam and patient with steady gait, given duration of symptoms no indication for emergent imaging at this time. Suspect 2/2 anxiety vs. medication side effect vs. benign essential tremor vs. electrolyte abnormality. Plan: -labs -if labs unremarkable will d/c with return precautions, recommend PMD f/u This clinical encounter is taking place during a federal and state health care emergency attributable to the novel [place] Virus pandemic. The [employer] of the Department of Health and Human Services has declared, pursuant to the Public Health Service Act 319F-3 (42 U.S[place]C. 247d-6d), that a covered persons activities related to medical countermeasures against COVID-19 will be immune from liability under Federal and State law. Discharge - Discharge Information Problems reviewed: Yes Clinical Impression/Diagnosis: Tremors of nervous system Condition: Stable Disposition: HOME - Follow up/Referral Referrals: Felipe Judge MD [Primary Care Provider] - - Patient Discharge Instructions Patient Printed Discharge Instructions: [place] Additional Instructions: You were seen in the ER for tremors, visual changes. Your bloodwork was normal. Follow up with your psychiatrist as soon as possible, in the next 2-3 days. Return to the ER if you develop weakness, confusion, chest pain, intractable nausea and vomiting. - Post Discharge Activity
[2020-07-06 12:33] VITALS: BP 154/95; PULSE 64
--- NOTE | 2020-07-07 16:13 | EKG ---
Test Reason : Blood Pressure : / mmHG Vent. Rate : 068 BPM Atrial Rate : 068 BPM P-R Int : 142 ms QRS Dur : 092 ms QT Int : 428 ms P-R-T Axes : 028 022 025 degrees QTc Int : 455 ms POOR DATA QUALITY, INTERPRETATION MAY BE ADVERSELY AFFECTED NORMAL SINUS RHYTHM NORMAL ECG WHEN COMPARED WITH ECG OF 18-JUN-2020 15:20, NO SIGNIFICANT CHANGE WAS FOUND Confirmed by MD Alex, Jamie ([id number]) on 07/07/2020 4:13:12 PM Referred By: Confirmed By:Jamie Johnson MD
== END 2020-07-06 12:28 | disposition home or self-care (01) ==
LOC: JER 09:44
DX: R25.1 Tremor, unspecified (principal)
CPT/HCPCS: 36415; 80053; 80178; 81003; 82962; 84443; 85025; 87086; 93005; 93010; 99284-25

== ENCOUNTER 2021-10-31 15:05 | Emergency (ER) | payer BC ==
[2021-10-31 15:26] VITALS: BP 130/77; PULSE 47; TEMP 97.6; BMI 34.9
[2021-10-31] MEDS ORDERED: IBUPROFEN 600 MG TABLET (FP) PO ONE ×2 (16:51→17:16)
== END 2021-10-31 17:20 | disposition home or self-care (01) ==
LOC: JERFT 15:05
DX: M25.562 Pain in left knee (principal)
CPT/HCPCS: 73562-TC-LT-FY; 99283-25

== ENCOUNTER 2021-11-29 07:20 | Day surgery (SDC) | payer BC ==
[2021-11-26 12:24] VITALS: BMI 34.0
[2021-11-29] MEDS ORDERED: oxyCODONE HCL 5 MG TABLET PO PRN (08:36)
[2021-11-29] MEDS ORDERED: ONDANSETRON 4 MG/2 ML VIAL IVPUSH PRN (08:36)
[2021-11-29] MEDS ORDERED: LACTATED RINGERS SOLUTION 1,000 ML IV SCH (08:45)
[2021-11-29] MEDS ORDERED: MIDAZOLAM HCL 2 MG/2 ML SINGLE DOSE VIAL ONE (09:03)
[2021-11-29] MEDS ORDERED: ceFAZolin SODIUM 1 GM VIAL ONE (09:03)
[2021-11-29] MEDS ORDERED: PROPOFOL 20 ML ONE ×2 (09:04→09:49)
[2021-11-29] MEDS ORDERED: ACETAMINOPHEN 500 MG TABLET (FP) PO PRN (10:22)
[2021-11-29 10:48] VITALS: TEMP 97.5
[2021-11-29 10:58] VITALS: PULSE 63
[2021-11-29] MEDS ORDERED: ACETAMINOPHEN 500 MG TABLET (FP) ONE (11:39)
[2021-11-29 11:57] VITALS: BP 121/74
== END 2021-11-29 12:00 | disposition home or self-care (01) ==
LOC: FASU 07:20
PROVIDERS: ATTEND Orthopaedic Surgery Sports Medicine
PROC: 0SBD4ZZ Excision of Left Knee Joint, Percutaneous Endoscopic Approach (ICD-10-PCS; principal; 2021-11-29 09:51)
DX: S83.242A Other tear of medial meniscus, current injury, left knee, initial encounter (principal); M65.862 Other synovitis and tenosynovitis, left lower leg; M94.262 Chondromalacia, left knee; X58.XXXA Exposure to other specified factors, initial encounter; Y93.9 Activity, unspecified; Y92.9 Unspecified place or not applicable
CPT/HCPCS: 84703; 94760

== ENCOUNTER 2021-12-25 23:05 | Emergency (ER) | payer BC ==
[2021-12-25 23:21] VITALS: BP 132/77; PULSE 78; TEMP 97.9; BMI 32.9
[2021-12-26] MEDS ORDERED: IBUPROFEN 600 MG TABLET (FP) PO ONE ×2 (00:20→01:05)
== END 2021-12-26 02:02 | disposition home or self-care (01) ==
LOC: JER 23:05
DX: M25.562 Pain in left knee (principal)
CPT/HCPCS: 73564-TC-LT-FY; 93971-TC; 99285-25

== ENCOUNTER 2024-06-25 19:48 | Emergency (ER) | payer BC, OTHER ==
[2024-06-25 20:06] VITALS: BP 149/87; PULSE 71; RESP 18; TEMP 98.1; BMI 28.8
[2024-06-25] MEDS ORDERED: KETOROLAC TROMETHAMINE 30 MG/1 ML VIAL ONE (21:47)
[2024-06-25] MEDS: KETOROLAC TROMETHAMINE 30 MG/1 ML VIAL IM ONE (21:54)
[2024-06-25] MEDS ORDERED: ACETAMINOPHEN WITH CODEINE 300MG/30MG TABLET ONE (23:54)
[2024-06-25] MEDS: ACETAMINOPHEN WITH CODEINE 300MG/30MG TABLET PO ONE (23:55)
== END 2024-06-26 00:45 | disposition home or self-care (01) ==
LOC: JER 19:48
PROC: 3E0233Z Introduction of Anti-inflammatory into Muscle, Percutaneous Approach (ICD-10-PCS; principal; 2024-06-25)
DX: S52.502A Unspecified fracture of the lower end of left radius, initial encounter for closed fracture (principal); W19.XXXA Unspecified fall, initial encounter
CPT/HCPCS: 73110-TC-LT-FY; 73130-TC-LT-FY; 99284-25

== ENCOUNTER 2024-07-12 06:00 | Day surgery (SDC) | payer BC ==
[2024-07-05 15:16] VITALS: BMI 29.2
[2024-07-12] MEDS ORDERED: PROPOFOL 40 ML ONE (07:04)
[2024-07-12] MEDS ORDERED: MIDAZOLAM HCL 2 MG/2 ML SINGLE DOSE VIAL ONE (07:04)
[2024-07-12] MEDS ORDERED: ROPIVACAINE HCL/PF 100 MG/20 ML VIAL ONE (07:10)
[2024-07-12] MEDS ORDERED: BUPIVACAINE HCL/PF 0.25% (2.5MG/ML) 10 ML VIAL ONE (07:17)
[2024-07-12] MEDS ORDERED: BUPIVACAINE HCL/PF 0.5% (5MG/ML) 10 ML VIAL ONE ×2 (07:30→07:32)
[2024-07-12] MEDS ORDERED: ACETAMINOPHEN INJECTION 100 ML ONE (07:32)
[2024-07-12] MEDS ORDERED: ONDANSETRON 4 MG/2 ML VIAL ONE ×2 (07:52)
[2024-07-12] MEDS ORDERED: KETOROLAC TROMETHAMINE 30 MG/1 ML VIAL ONE (07:52)
[2024-07-12] MEDS ORDERED: DEXAMETHASONE SOD PHOSPHATE 4 MG/1 ML VIAL ONE ×2 (07:52)
[2024-07-12] MEDS ORDERED: ceFAZolin SODIUM 1 GM VIAL ONE ×2 (07:52)
[2024-07-12] MEDS ORDERED: HYDROmorphone HCL/PF 1 MG/ML VIAL ONE (08:16)
[2024-07-12] MEDS ORDERED: TRANEXAMIC ACID 1000 MG/10 ML VIAL ONE (09:22)
[2024-07-12] MEDS: BUPIVACAINE HCL/PF 0.5% (5MG/ML) 10 ML VIAL IJ ONE (09:45)
[2024-07-12] MEDS ORDERED: oxyCODONE HCL 5 MG TABLET PO PRN ×2 (10:14)
[2024-07-12] MEDS ORDERED: ONDANSETRON 4 MG/2 ML VIAL IVPUSH PRN (10:14)
[2024-07-12 12:22] VITALS: RESP 16
[2024-07-12 13:11] VITALS: PULSE 68; TEMP 97.8
[2024-07-12 14:23] VITALS: BP 131/78
== END 2024-07-12 13:30 | disposition home or self-care (01) ==
LOC: FASU 06:00
PROVIDERS: ATTEND Orthopaedic Surgery Sports Medicine
PROC: 0PSJ04Z Reposition Left Radius with Internal Fixation Device, Open Approach (ICD-10-PCS; principal; 2024-07-12 08:07)
DX: S52.572A Other intraarticular fracture of lower end of left radius, initial encounter for closed fracture (principal); X58.XXXA Exposure to other specified factors, initial encounter; Y92.9 Unspecified place or not applicable; Y93.9 Activity, unspecified
CPT/HCPCS: 73110-TC-LT-FY; 94760; C1713; J0131

== ENCOUNTER 2025-08-06 18:46 | Emergency (ER) | payer BC ==
[2025-08-06 19:13] VITALS: BP 144/94; RESP 16; TEMP 98.4; BMI 31.8
[2025-08-06] MEDS ORDERED: ACETAMINOPHEN 500 MG TABLET (FP) ONE (19:23)
[2025-08-06] MEDS: ACETAMINOPHEN 500 MG TABLET (FP) PO ONE (19:29)
[2025-08-06] MEDS ORDERED: MAGNESIUM SULFATE IN WATER 2 GM/50 ML IVPB IVPB ONE (19:37)
[2025-08-06] MEDS: MAGNESIUM SULF 50% (8.12 MEQ/2 ML-1 GM VIAL) IVPB ONE (19:51)
[2025-08-06 19:52] LABS: ABSOLUTE IMMATURE GRANULOCYTES 0.10 x10^3/uL (0.0-0.031); BASOPHILS # 0.03 x10^3/uL (0.01-0.08); EOSINOPHIL % 0.5 % (0.7-5.8); EOSINOPHILS # 0.06 x10^3/uL (0.04-0.36); MCHC 32.4 g/dl (32.2-35.5); MEAN CELL VOLUME 91.8 fl (79.4-94.8); MEAN PLT VOLUME 10.2 fl (9.4-12.3); MONOCYTE # 0.70 x10^3/uL (0.24-0.86); MONOCYTE % 6.0 % (4.7-12.5); RDW 13.2 % (12.3-16.6)
[2025-08-06 20:12] LABS: ALK PHOS 121.0 U/L (45-117); CO2 22.0 mmol/L (21-32); CREATININE 0.9 mg/dl (0.6-1.3); GLUCOSE,RANDOM 106.0 mg/dl (74-106); LDH 135.0 U/L (84-246); SGOT/AST 13.0 U/L (15-37); SGPT/ALT 14.0 U/L (7-52); TOT PROT 7.3 g/dl (6.4-8.2)
[2025-08-06] MEDS ORDERED: DEXAMETHASONE 4 MG TABLET (FP) ONE (20:20)
[2025-08-06] MEDS: DEXAMETHASONE 4 MG TABLET (FP) PO ONE (20:23)
[2025-08-06 20:43] VITALS: PULSE 84
== END 2025-08-06 20:51 | disposition home or self-care (01) ==
LOC: FER 18:46
PROC: 3E033GC Introduction of Other Therapeutic Substance into Peripheral Vein, Percutaneous Approach (ICD-10-PCS; principal; 2025-08-06)
DX: J44.0 Chronic obstructive pulmonary disease with (acute) lower respiratory infection (principal); J18.9 Pneumonia, unspecified organism; R06.02 Shortness of breath
CPT/HCPCS: 36415; 71046-TC-FY; 80053; 80178; 83615; 85025; 85379; 87040; 87637-QW; 93005; 99285-25